=== PATIENT | female | born 1990 | race Caucasian/White ===

== ENCOUNTER 2023-07-30 15:59 | Emergency (ER) | payer OTHER, SELFPAY ==
[2023-07-30 16:07] VITALS: BP 139/80; PULSE 107; RESP 20; TEMP 36.3; O2SAT 98
--- NOTE | 2023-07-30 16:21 | ED.FEMALEGU ---
HPI - Female Genitourinary General Chief complaint: Urogenital-Female Stated complaint: Poss UTI Time Seen by Provider: 07/30/23 16:29 Source: patient and RN notes reviewed Mode of arrival: ambulatory Limitations: no limitations History of Present Illness HPI Narrative: 32-year-old female presents with concern for 1 hour history of very frequent need to urinate, urgency. Reports a very small amount of urination. She reports mild low back pain. She denies fever, aches, chills, sweats. Denies nausea, vomiting, abdominal pain. MD elicited complaint: UTI Related Data Allergies Allergy/AdvReac Type Severity Reaction Status Date / Time No Known Allergies Allergy Verified 10/04/18 07:23 Review of Systems Review of Systems: CONSTITUTIONAL: Denies malaise, chills, sweats, or fever. CARDIOVASCULAR: Denies chest pain, palpitations, or edema. RESPIRATORY: Denies cough or dyspnea. GASTROINTESTINAL: Denies abdominal pain, nausea, vomiting, diarrhea GENITOURINARY: Denies dysuria, suprapubic pressure. Denies flank pain or hematuria. Reports frequency, urgency, small amount of urine SKIN: Denies rash or itching. MUSCULOSKELETAL: Reports mild back pain. Myalgia. All systems reviewed & are unremarkable except as noted in HPI and below PMFSH Comments At time of signature, agree with nursing past medical, surgical, social and family history. There is no relevant family history pertinent to the presenting complaint Exam Narrative: GENERAL: Well-appearing, well-nourished, and in no acute distress. HEAD: Normocephalic. EYES: PERRLA, conjunctivae clear. NECK: Supple. No lymphadenopathy CHEST: Clear to auscultation. No respiratory distress. HEART: Regular rate and rhythm. ABDOMEN: Soft, nontender upon palpation, nondistended, normal active bowel sounds, no palpable or pulsatile masses, no guarding. No CVA tenderness SKIN: Warm, dry, no rash. NEURO: Alert and oriented x3. PSYCH: Normal mood and affect Course Course Emergency Course: Patient is aware of diagnosis, understands and agrees to treatment plan. Anticipatory guidance given. Patient agrees to follow-up as directed and is aware of reasons to seek care at the emergency department. Portions of this record may have been created with voice recognition software Level of Care: Express Care Visit Vital Signs Vital signs: Vital Signs Temperature 97.4 F L 07/30/23 16:07 Pulse Rate 107 H 07/30/23 16:07 Respiratory Rate 20 07/30/23 16:07 Blood Pressure 139/80 07/30/23 16:07 Pulse Oximetry 98 07/30/23 16:07 Oxygen Delivery Room Air 07/30/23 16:07 Temperature 97.4 F L 07/30/23 16:07 Pulse Rate 107 H 07/30/23 16:07 Respiratory Rate 20 07/30/23 16:07 Blood Pressure 139/80 07/30/23 16:07 Pulse Oximetry 98 07/30/23 16:07 Oxygen Delivery Room Air 07/30/23 16:07 Reviewed. MDM - Female Genitourinary MDM Narrative Medical decision making narrative: Exam findings and UA show no acute concerns or changes; patient is non-toxic appearing and is in no distress. Patient is appropriate for outpatient treatment and follow-up. Differential Diagnosis Differential diagnosis: Likely urinary tract infection and cystitis Lab Data Labs: Urine Glucose Negative Reference Range: Negative Urine Bilirubin Negative Reference Range: Negative Urine Ketone Negative Reference Range: Negative Urine Specific [place] 1.010 Reference Range:1.001-1.035 Urine Blood 3+ Reference Range: Negative * * Urine pH 6.5
== END 2023-07-30 16:40 | disposition home or self-care (01) ==
PROVIDERS: Emergency Provider Nurse Practitioner
DX: N39.0 Urinary tract infection, site not specified (principal); B96.20 Unspecified Escherichia coli [E. coli] as the cause of diseases classified elsewhere
CPT/HCPCS: 81003; 87077; 87086; 87186; 99203; G0463

== ENCOUNTER 2025-05-02 18:29 | Emergency (ER) | payer BC, SELFPAY ==
--- NOTE | ~2025-05-02 | XR_ITS ---
EXAMINATION: XR chest 2V 05/02/2025 18:52 INDICATION: Cough and shortness of breath PROCEDURE: 2 view chest COMPARISON: No prior studies for comparison. FINDINGS: The lungs are clear. The cardiomediastinal silhouette is within normal limits. There are no pleural effusions. There is no pneumothorax suspected. IMPRESSION: 1: NO ACUTE CARDIOPULMONARY DISEASE. Reviewed, dictated and finalized at location O.
--- OUTSIDE RECORDS SUMMARY | 2025-05-02 18:31 | XMS_ITS | Clinical Summary ---
Author Organization [facility] Address [address] [place] [address] Care Team Providers Care Drill Sharpener Operator Name Role Phone Shayy Turner PA-C Primary Care Provider + Source Comments [facility],non-owned Affiliates and Associated Physician Practices is amultiple site organization consisting of ambulatory clinics and hospital sitesin [place], [place], [place] and [place]. This disclosure is being madepursuant to the Care Everywhere program and may not contain all information available regarding this patient. Last updated 18.[facility] Allergies No known active allergies Medications * Be aware that medications may not be up to date on this document. Alwaysverify current medications with the patient. Vit-Fe Fumarate-FA ( VITAMIN) 28-0.8 MG tablet Take 1 tablet by mouth once daily Active folic acid (FOLVITE) 1 MG tablet Take 4 mg by mouth once daily Active aspirin (ASPIRIN) 81 MG tablet Take 162 mg by mouth once daily Active calcium-vitamin D (CALTRATE PLUS D) 600-200 MG-UNIT tablet Take 1 tablet by mouth once daily Active progesterone micronized (PROMETRIUM) 100 MG capsule Take 100 mg by mouth 2 times daily Active metFORMIN (GLUCOPHAGE) 500 MG tabletIndicatio ns:Gestational Diabetes,pt started 1 in am and 2 at night and will increase in 3 days to 2 in am and 2 pm Take 500 mg by mouth 3 times daily with meals Reasons: Diabetes During , pt started 1 in am and 2 at night and will increase in 3 days to 2 in am and 2 pm Active Active Problems Problem Noted Date Diagnosed Date Itching 08/19/2018 Overview (09/16/2018): Total bile acids (08/19) <1.5; ALT/AST /; bilirubin 0.3 Assessment & Plan (09/16/2018 7:39 PM AUTO TRANSMISSION SPECIALIST): Labs not consistent with intrahepatic cholestasis of Obesity 08/19/2018 History of delivery, currently 08/14/2018 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 Overview (09/02/2018): Per ACOG review; MTHFR: 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, two copies GDM (gestational diabetes mellitus) 08/11/2018 Overview (09/16/2018): GCT: 177 (07/23/18) GTT: 86, 210 (abnormal), 161 (abnormal), 125 (07/31/18) Assessment & Plan (09/16/2018 7:39 PM AUTO TRANSMISSION SPECIALIST): Elevated fasting blood glucose Plan: Metformin 1000mg BID 4 times daily blood sugars and glucose logs Twice weekly nonstress tests starting at 34 weeks Serial growth every 4 weeks with last assessment at 38 weeks for mode of delivery Delivery initiation between 39-40 weeks Diabetes testing 4-5 weeks after delivery with review at 6 week visit Assessment & Plan (09/02/2018 1:23 PM AUTO TRANSMISSION SPECIALIST): Glyburide stopped and Metformin initiated 08/26/18. Check blood glucose 4x daily, including fasting and one hour after each meal. Send in glucose and food records to diabetes team each week, even if not being seen for a visit. Twice daily kick counts. Close monitoring for development of preeclampsia. Twice weekly NST from 34 weeks until delivery. Serial growth assessments every 3-4 weeks, with final assessment at 37-38 weeks for delivery mode planning. Report any episodes of hypoglycemia. 2 hour GTT to be checked at 4 weeks PP, to be reviewed at 6 weeks PP visit, if normal, annual screening recommended. Assessment & Plan (08/19/2018 1:33 PM AUTO TRANSMISSION SPECIALIST): Glyburide 5mg every evening Continue to check blood glucose 4x daily, including fasting and one hour after each meal. Send in glucose and food records to diabetes team each week, even if not being seen for a visit. Continue Glyburide 5mg at night time. Continue efforts in carb counting, encouraged compliance with nutritional counseling next week. Twice daily kick counts. Close monitoring for development of preeclampsia. Twice weekly NST from 34 weeks until delivery Serial growth assessments every 3-4 weeks, with final assessment at 37-38 weeks for delivery mode planning. 2 hour GTT to be checked at 4 weeks PP, to be reviewed at 6 weeks PP visit, if normal, annual screening recommended. 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, two copies AFP TETRA SCREEN: negative Assessment & Plan (08/14/2018 11:21 AM AUTO TRANSMISSION SPECIALIST): Datinw u/s c/w LMP, CRL of 2.25cm, MIGUEL-->10/29/18 summary A+/Imm/-/- HIV NR (03/04/18) Antibody screen: negative Hemoglobin electrophoresis: Normal TSH: 1.1 H/H/P: 12.7/37.8/330 CT/GC: neg/neg (04/16/18) Irritable bowel syndrome (IBS) Family History Medical History Relation Name Comments Arthritis - Rheumatoid Father Hypertension Father Lung Disease Father Sleep Disorder - Other Father Cancer - Other Maternal Grandmother Hypertension Mother Cancer - Other Other Paternal Uncle Lung Disease Other Paternal Uncle Lung Disease Sister Relation Name Status Comments Father Maternal Grandmother (Age 39) ma lignant tumor of cervix Mother Other Paternal Uncle malignant jocelyne plastic disease Sister cervical cancer Social History Tobacco Use Types Packs/Day Years Used Date Smoking Tobacco: Former Cigarettes 0.3 10 Smokeless Tobacco: Never Comments No Sex and Gender Information Value Date Recorded Sex Assigned at Not on file Legal Sex Female 8:41 AM CDT Gender Identity Not on file Sexual Orientation Not on file Last Filed Vital Signs Vital Sign Reading Time Taken Comments Blood Pressure 143/71 10/20/2018 9:46 AM AUTO TRANSMISSION SPECIALIST Pulse 93 10/20/2018 9:46 AM AUTO TRANSMISSION SPECIALIST Temperature - - Respiratory Rate 16 08/19/2018 10:0 4 AM AUTO TRANSMISSION SPECIALIST Oxygen Saturation - - Inhaled Oxygen Concentration - - Weight 94.3 kg (207 lb 12.8 oz) 019 10:06 AM AUTO TRANSMISSION SPECIALIST Height 170.2 cm (5' 7) 08/19/2018 10:0 4 AM AUTO TRANSMISSION SPECIALIST Body Mass Index 32.55 08/19/2018 10:04 AM AUTO TRANSMISSION SPECIALIST Plan of Treatment Health Maintenance Due Date Last Done Comments HIV SCREENING 2004 HEPATITIS C SCREENING 11/03/2007 DTAP/TDAP/TD VACCINES (1 - Tdap) 2008 HEPATITIS B VACCINE (1 of 3 - 19+ 3-dose series) 2008 HPV VACCINE (1 - 3-dose SCDM series) 2016 DEPRESSION SCREENING 08/25/2024 COVID-19 VACCINE (1 - season) 2025 INFLUENZA VACCINE (#1) 2025 8, 07/14/2017, 07/10/2017, Additional history exists ZOSTER VACCINE (1 of 2) 11/08/2039 HIB VACCINE Aged Out No longer eligi ble based on patient's age to complete this topic MENINGOCOCCAL (Group B) VACCINE SHARED DECISION-MAKING Aged Out No longer eligible based on patient's age to complete this topic MENINGOCOCCAL GROUPS A/C/Y/W VACCINE Aged Out No longer eligible based on patient's age to complete this topic PNEUMOCOCCAL VACCINE Aged Out No long er eligible based on patient's age to complete this topic Insurance [employer] [facility] [place] [address] HEALTH CARE Care Teams Drill Sharpener Operator Relationship Specialty Start Date End Date Shayy Turner JanuaryWADE PCP - General Physician Instructional Interventionist 08/12/18
--- OUTSIDE RECORDS SUMMARY | 2025-05-02 18:31 | XMS_ITS | Clinical Summary ---
Author Organization [facility] Address [address] [place] [phone] Phone Care Team Providers Care Quality Improvement Coordinator Name Role Phone Gael Taylor MD Unavailable Megan Grijalva APRN, ADMINISTRATIVE SUPPORT TECHNICIAN Primary Care P rovider Allergies No known active allergies Medications metroNIDAZOLE (METROGEL) 0.75 % GelIndications: Bacterial vaginitis 1 Applicatorful by Vaginal route nightly. 70 g 04/12/20 25 Active naltrexone-bupr opion hcl er (Contrave) 8-90 MG TABLET SR 12 HRIndications:C lass 1 obesity due to excess calories with serious comorbidity and body mass index (BMI) of 30.0 to 30.9 in adult Start 1 tab by mouth in the am for 1 week, then 1 tab twice daily for 1 week, then 2 tabs in the am and 1 tab in the pm for 1 week, then 2 tabs twice daily 70 Tablet 04/12/20 25 Active phentermine hcl (ADIPEX-P) 37.5 MG TabletIndicatio ns:Class 1 obesity due to excess calories with serious comorbidity and body mass index (BMI) of 30.0 to 30.9 in adult Take 1 Tablet by mouth every morning (before breakfast) for 30 days. 30 Tablet 04/18/20 25 05/18/ 025 Active Cyanocobalamin (B-12 PO) Take by mouth. 025 Discontin ued(Med List Clean Up) Cholecalciferol (Vitamin D3) 1.25 MG (28789 UT) TabletIndicatio ns:Vitamin D deficiency Take 1 Tablet by mouth once a week. 12 Tablet 3 10/01/19 23 025 Discontin ued(Med List Clean Up) polyethylene glycol (GLYCOLAX) 17 GM/SCOOP Powder Take 17 g by mouth daily. 17 g = 1 scoop. Dissolve in 4 -8 oz of water or other liquid. 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, two copies B12 deficiency 11/20/2017 Vitamin D deficiency 10/23/2017 Resolved Problems Problem Noted Date Diagnosed Date Resolved Date Aphthous ulcer 04/06/2019 10/01/2022 Cellulitis of palate 04/06/2019 023 History of gestational diabetes 11/19/2018 10/01/2022 Chronic idiopathic constipation 03/04/2018 04/12/2025 Irritable bowel syndrome with constipation 10/23/2017 10/01/2022 Hypertriglyceridemia 10/23/2017 023 Encounters Date Type Department Care Team Description 04/12/2025 2:00 PM CDT Office Visit [facility] - Primary Care - [place] [address] [place] [address] Megan Grijalva, PASSENGER BARGE MASTER, ADMINISTRATIVE SUPPORT TECHNICIAN Annual physical exam (Adult) (Primary Dx); Bacterial vaginitis; Class 1 obesity due to excess calories with serious comorbidity and body mass index (BMI) of 30.0 to 30.9 in adult; Vitamin D deficiency; Vitamin B12 deficiency; Hypocalcemia Discharge Disposition: Discharged to home or Selfcare 04/11/2025 Travel 03/11/2025 3:17 AM CDT - 03/11/2025 4:11 AM CDT Emergency [facility] [address] [facility] [id number] Genaro Cornejo MD Right knee sprain Discharge Disposition: Discharged to home or Selfcare 03/11/2025 Travel 02/14/2025 Refill [facility] - Primary Care - [place] [address] [place] [address] Megan Grijalva APRN, ADMINISTRATIVE SUPPORT TECHNICIAN Medication Refill from Last 3 Months Immunizations Immunization Administration Dates Next Due Covid-19, Mrna, Lnp-s, Pf, 3 0 Mcg/0.3 Ml Dose ([facility]) 11/09/2020,10/19/2020 DTAP VACCINE 09/02/2014 Hepatitis B Vaccine, Pediatric/adolescent 04/10/2000,12/28/1999,08/08/1999 Influenza Vaccine 07/14/2017,07/14/2016 Influenza Vaccine greater than 3 yrs 07/24/2019, 07/24/2018,06/25/2017 Influenza Vaccine, Quadrivalent, PF 05/24/2021,1 ,07/01/2019 Influenza Vaccine,unspecifie d Formulation 07/14/2016 Influenza, Injectable, Quadrivalent 06/03/2018,1 09/09/2016,06/01/2014 Influenza, Seasonal, Injecta ble, Undefined 07/24/2019,07/24/2018,06/25/2017,2014 MMR Vaccine 04/10/2000,06/10/1995 TD VACCINE 11/05/2002 TDAP Vaccine 07/23/2018,03/13/2009 Family History Medical History Relation Name Comments No Known Problems Brother Chronic Obstructive Pulmonary Disease Father Emphysema Father Emphysema Maternal Grandmother Emphysema Mother Emphysema Paternal Grandmother Cancer Sister Relation Name Status Comments Brother Alive Father Alive Maternal Grandfather Maternal Grandmother Mother Alive Paternal Grandfather Paternal Grandmother Sister Alive Social History Tobacco Use Types Packs/Day Years Used Date Smoking Tobacco: Every Day Cigarettes 0.7 18.7 Started: 2006 Smokeless Tobacco: Never Tobacco Cessation:Ready to Q uit: No; Counseling Given: Yes Alcohol Use Standard Drinks/Week Comments Yes 0 (1 standard drink = 0.6 oz pur e alcohol) Occasionally Social Connection and Isolation Panel Answer Date Recorded In a typical week, how many times do you talk on the phone with family, friends, or neighbors? More than three times a week 04/12/2024 How often do you get togethe r with friends or relatives? More than three times a week 04/12/2024 How often do you attend chur ch or confucianism services? More than 4 times per year 04/12/2024 Do you belong to any clubs o r organizations such as quaker groups, [employer], [employer] or athletic groups, or school groups? Yes 04/12/2024 How often do you attend meet ings of the clubs or organizations you belong to? More than 4 times per year 04/12/2024 Are you , , di vorced, , never , or living with a partner? 04/12/2024 PHQ-2 Answer Date Recorded Total Score - Questions 1-9 2 03/25 Housing Stability Vital Sign Answer José e Recorded In the last 12 months, was t here a time when you were not able to pay the mortgage or rent on time? No 04/12/2024 In the past 12 months, how m any times have you moved where you were living? 0 04/12/2024 At any time in the past 12 m [facility], were you homeless or living in a custodial (including now)? No 04/12/2024 Social Connection and Isolation Panel Answer Date Recorded In a typical week, how many times do you talk on the phone with family, friends, or neighbors? More than three times a week 04/11/2025 How often do you get togethe r with friends or relatives? More than three times a week 04/11/2025 How often do you attend chur ch or confucianism services? Patient declined 04/11/2025 Do you belong to any clubs o r organizations such as quaker groups, unions, fraternal or athletic groups, or school groups? No 04/11/2025 How often do you attend meet ings of the clubs or organizations you belong to? Never 04/11/2025 Are you , , di vorced, , never , or living with a partner? 04/11/2025 AUDIT-C Answer Date Recorded Q1: How often do you have a drink containing alc ohol? Monthly or less 04/11/2025 Q2: How many drinks containi ng alcohol do you have on a typical day when you are drinking? 1 or 2 04/11/2025 Q3: How often do you have si x or more drinks on one occasion? Never 04/11/2025 Overall Financial Resource Strain (CARDIA) Answe r Date Recorded How hard is it for you to pa y for the very basics like food, housing, medical care, and heating? Not hard at all 04/11/2025 [facility] - Occupational Stress Questionnaire Answer Date Recorded Do you feel stress - tense, restless, nervous, or anxious, or unable to sleep at night because your mind is troubled all the time - these days? Not at all 04/11/2025 Exercise Vital Sign Answer Date Recorde d On average, how many days pe r week do you engage in moderate to strenuous exercise (like a brisk walk)? 3 days 04/11/2025 On average, how many minutes do you engage in exercise at this level? 60 min 04/11/2025 Hunger Vital Sign Answer Date Recorded Within the past 12 months, y ou worried that your food would run out before you got the money to buy more. Never true 04/11/20 25 Within the past 12 months, t he food you bought just didn't last and you didn't have money to get more. Never true 04/11/2025 PRAPARE - Transportation Answer Date Re corded In the past 12 months, has l ack of transportation kept you from medical appointments or from getting medications? No 03/25 In the past 12 months, has l ack of transportation kept you from meetings, work, or from getting things needed for daily living? No 04/11/2025 Housing Stability Vital Sign Answer José e Recorded In the last 12 months, was t here a time when you were not able to pay the mortgage or rent on time? No 04/11/2025 In the past 12 months, how m any times have you moved where you were living? 0 04/11/2025 At any time in the past 12 m [facility], were you homeless or living in a custodial (including now)? No 04/11/2025 [facility] Utilities Answer Date Recorded In the past 12 months has th e electric, gas, oil, or water company threatened to shut off services in your home? No 04/11/2025 Sexually Active Control Partners Comments Yes None Male Comments No Sex and Gender Information Value Date Recorded Sex Assigned at Not on file Legal Sex Female 12:12 PM CHICKEN [employer] Gender Identity Not on file Sexual Orientation Not on file Last Filed Vital Signs Vital Sign Reading Time Taken Comments Blood Pressure 138/86 04/12/2025 1:36 PM CDT Pulse 76 04/12/2025 1:36 PM CDT Temperature 36.4 C (97.6 F) 04/12/2025 1:36 PM CDT Respiratory Rate 18 04/12/2025 1:36 PM CDT Oxygen Saturation 99% 04/12/2025 1:36 PM CDT Inhaled Oxygen Concentration - - Weight 88.9 kg (196 lb) 04/12/2025 1:36 PM CDT Height 170.2 cm (5' 7) 04/12/2025 1:36 PM CDT Body Mass Index 30.7 04/12/2025 1:36 PM CDT Plan of Treatment Health Maintenance Due Date Last Done Comments Hepatitis C Virus (HCV) Screening 1989 Pneumococcal Immunization Combined (1 of 2 - PCV) 2008 Human Papillomavirus (HPV) Immunization (1 - 3-dose SCDM series) 2016 Influenza Immunization (#1) 2025 09/3 , 06/12/2020, 07/24/2019, Additional history exists SARS-COV-2 Immunization (2024- season) 2025 11/09/2020, 10/19/2020 Pap Smear 04/12/2027 04/12/2024, 03/08/2021, 07/14/2017 Cervical Cancer Screening (CCS) 04/12/2029 HPV/Cotest 04/12/2029 04/12/2024 Respiratory Syncytial Virus (RSV) Immunization (Adult) (1 - 1-dose 75+ series) 2064 Hepatitis B Immunization Completed 000, 12/28/1999, 08/08/1999 DTaP/Tdap/Td Immunization Discontinued 2017, 09/02/2014, 03/13/2009, Additional history exists Meningococcal Immunization (ACWY) Aged Out No longer eligible based on patient's age to complete this topic Rotavirus Immunization Aged Out No lo nger eligible based on patient's age to complete this topic Procedures Procedure Name Priority Date/Time Associated Diagnosis Comments XR KNEE 3 VIEWS RIGHT STAT 03/11/2025 3:46 AM CDT HUMAN PAPILLOMA VIRUS (HPV) Routine 04/12/2024 4:34 PM CDT Well woman exam with routine gynecological exam Class 1 obesity due to excess calories with serious comorbidity and body mass index (BMI) of 30.0 to 30.9 in adult PATHOLOGY CYTOLOGY DESIGN DRAFTSMAN Routine 04/12/2024 4:34 PM CDT Well woman exam with routine gynecological exam from Last 3 Months or Most Recently Relevant to Health Maintenance Results * XR KNEE 3 VIEWS RIGHT (03/11/2025 3:46 AM CDT) Anatomical Region Laterality Modality LOWER EXTREMITY, knee Right Digital Ra diography 03/11/2025 3:58 AM CDT Impressions 03/11/2025 4:01 AM CDT IMPRESSION: No acute osseous abnormality. Narrative 03/11/2025 4:01 AM CDT EXAM DESCRIPTION: XR KNEE 3 VIEWS RIGHT REASON FOR STUDY: direct blow injury yesterday, painful, limited ROM. TECHNIQUE: 3 radiographic view(s) of the right knee . COMPARISON: None FINDINGS: BONES/JOINTS: There is no acute fracture, malalignment or osseous abnormality. Small knee joint effusion. SOFT TISSUES: Within normal limits. THIS IS AN ELECTRONICALLY VERIFIED FINAL REPORT 03/11/2025 3:58 AM - Electronically signed by Ruth Miles M.D. FT: FT Report ID: [id number] Reading Location: [id number] Procedure Note Ruth Díaz MD - 03/11/2025 EXAM DESCRIPTION: XR KNEE 3 VIEWS RIGHT REASON FOR STUDY: direct blow injury yesterday, painful, limited ROM. TECHNIQUE: 3 radiographic view(s) of the right knee . COMPARISON: None FINDINGS: BONES/JOINTS: There is no acute fracture, malalignment or osseous abnormality. Small knee joint effusion. SOFT TISSUES: Within normal limits. THIS IS AN ELECTRONICALLY VERIFIED FINAL REPORT 03/11/2025 3:58 AM - Electronically signed by Ruth Miles M.D. FT: FT Report ID: [id number] Reading Location: [id number] IMPRESSION: No acute osseous abnormality. Genaro Cornejo MD IMG DIAGNOSTIC ORDERABLES Final Result * PATHOLOGY CYTOLOGY DESIGN DRAFTSMAN (04/12/2024 4:34 PM CDT) SPECIMEN ADEQUACY Satisfactory for evaluation. Endocervical/transf ormation zone component is present. 04/20/2024 2:43 PM CDT [facility] DESCRIPTIVE DIAGNOSIS NEGATIVE FOR INTRAEPITHELIAL LESIONS OR MALIGNANCY. 04/20/2024 2:43 PM CDT [facility] at 1443 CDT OTHER FINDINGS Predominance of coccobacilli present consistent with shift in vaginal bindu. 04/20/2024 2:43 PM CDT [facility] Automated Examination Analysis of this sample has been assisted by an automated imaging and review system ([employer] Imaging System, [employer], [place], [place]). This case is further evaluated and finalized by a design printing machine setter and/or pathologist. 04/20/2024 2:43 PM CDT [facility] Disclaimer The PAP smear is a screening test designed to detect cancerous or precancerous cells of the uterine cervix. It is one of the best means available for detection of cervical cancer but still carries an inherent false-negative rate. The consequences of a false-negative PAP result can be minimized by adhering to current screening guidelines. The following are general guidelines recommended by the ACS, ASCP, ASCCP, and ACOG: PAP testing is recommended every three years for women 21-29, Co-Testing, a PAP test in conjunction with an HPV (Human Papillomavirus) test for women ages 30-65, and no PAP or HPV testing for women under the age of 21 or older than 65 unless clinically indicated. 04/20/2024 2:43 PM CDT [facility] Case Report Gynecologic Cytology Report Case: [id number] Authorizing Provider: Megan Grijalva, Collected: 04/12/2024 04:34 PM LISA LANG Ordering Location: [facility] Received: 04/12/2024 04:34 PM [facility] Screen: Bianka Jones Specimen: TP Screen, Cervix/Endocervix/V aginal 04/20/2024 2:43 PM CDT [facility] Other (Cervix/Endocerv ix/Vaginal) Non-Phlebotomy Collection / Unknown 04/12/2024 4:34 PM CDT 04/12/2024 4:34 PM CDT us Megan Grijalva APRN, CNP PATHOLOGY/CYTOL OGY ORDERABLES Final Result [facility] [address] [place] [address], * HUMAN PAPILLOMA VIRUS (HPV) (04/12/2024 4:34 PM CDT) HPV TYPE 16 NEGATIVE NEGATIVE 04/15/2024 7:27 AM CDT [facility] Comment: A negative high-risk HPV result does not exclude the possibility of future cytologic HSIL or underlying CIN2-3 or cancer. The presence of PCR inhibitors may cause false negative or invalid results. If concentrations of whole blood in the sample exceed 10% (dark red or brown coloration) in PreservCyt solution, there is a likelihood of obtaining a false-negative result. HPV TYPE 18 NEGATIVE NEGATIVE 04/15/2024 7:27 AM CDT [facility] Comment: A negative high-risk HPV result does not exclude the possibility of future cytologic HSIL or underlying CIN2-3 or cancer. The presence of PCR inhibitors may cause false negative or invalid results. If concentrations of whole blood in the sample exceed 10% (dark red or brown coloration) in PreservCyt solution, there is a likelihood of obtaining a false-negative result. HPV OTHER HIGH RISK TYPES, PCR NEGATIVE NEGATIVE 04/15/2024 7:27 AM CDT [facility] Comment: The following Other High Risk types were not detected: 31, 33, 35, 39, 45, 51, 52, 56, 58, 59, 66, and 68. A negative high-risk HPV result does not exclude the possibility of future cytologic HSIL or underlying CIN2-3 or cancer. The presence of PCR inhibitors may cause false negative or invalid results. If concentrations of whole blood in the sample exceed 10% (dark red or brown coloration) in PreservCyt solution, there is a likelihood of obtaining a false-negative result. HPV ORDER BE USED FOR SCREENING OR DIAGNOSTIC SCREENING 04/15/2024 7:27 AM CDT [facility] Other Non-Phlebotomy Collection / Unknown 04/12/2024 4:34 PM CDT 04/13/2024 8:14 AM CDT Narrative [facility] - 04/15/2024 7:27 AM CDT This test was performed using ALINE 5800 Real Time PCR. Megan Grijalva APRN, CNP LAB SEND OUTS Final Result [facility] [address] [place] [address], [facility] [address] [place] [address] from Last 3 Months or Most Recently Relevant to Health Maintenance Insurance [facility] Care Teams Quality Improvement Coordinator Relationship Specialty Start Date End Date Megan Grijalva APRN, ADMINISTRATIVE SUPPORT TECHNICIAN [address] [place] [address] PCP - General Advanced Practice Nurse 02/03/20 Gael Taylor MD Consulting Physician Obstetrics & Gynecology 10/23/17
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
--- NOTE | 2025-05-02 18:32 | ED_ITS ---
HPI - URI/Sore Throat General Chief Complaint: Upper Respiratory Infection Stated Complaint: congestion Time Seen by Provider: 05/02/25 18:32 Source: patient Mode of arrival: ambulatory Limitations: no limitations History of Present Illness HPI Narrative: Sanaz is a 34-year-old female patient presenting to the clinic today with complaints of cough, nasal congestion and chest congestion x1 week. She reports she feels as though her chest feels congested and heavy. Denies any chest pain. Cough is productive with some green phlegm. Patient's concern for pneumonia. MD elicited complaint: sore throat and nasal congestion Related Data Allergies Allergy/AdvReac Type Severity Reaction Status Date / Time No Known Allergies Allergy Verified 05/02/25 18:46 Review of Systems Review of Systems: Pertinent positives per HPI. Patient denies any fever, chills, rash, headache, visual changes, dizziness, cough, shortness of breath, chest pain, palpitations, nausea, vomiting, diarrhea, constipation, abdominal pain, or any urinary issues. PMFSH Comments At the time of my signature, I reviewed and agree with the nursing past medical, surgical, social, and family history. There is no relevant family history pertinent to the patient complaint. Exam Narrative: General: Well-developed, obese, in no apparent distress Head: Normocephalic, atraumatic Eyes: Pupils equally round and reactive to light bilaterally, EOM intact, sclera and conjunctive clear, no discharge, lids normal Ears: TMs intact and clear, ear canals clear, no drainage, grossly hearing normal. Nose: Nares patent, clear nasal discharge, mild inflammation, no sinus tenderness. Mouth: Oral pharynx without lesions or masses, good dentition, MMM. Neck: Supple, trachea midline, no enlargement of anterior or posterior cervical nodes, no thyroid masses or goiter palpable. Cardio: Regular rate and rhythm, s1 and s2 normal, no murmur appreciated. Resp: Diminished in the bases with some expiratory wheezing, no rhonchi, rales, or rubs Course Course Emergency Course: Portions of this record may have been created with voice recognition software. Level of Care: Express Care Visit Vital Signs Vital signs: Vital Signs Temperature 36.6 C 05/02/25 18:36 Pulse Rate 82 05/02/25 18:36 Respiratory Rate 20 05/02/25 18:36 Blood Pressure 134/85 05/02/25 18:36 Pulse Oximetry 96 05/02/25 18:36 Oxygen Delivery Room Air 05/02/25 18:36 Temperature 36.6 C 05/02/25 18:36 Pulse Rate 82 05/02/25 18:36 Respiratory Rate 20 05/02/25 18:36 Blood Pressure 134/85 05/02/25 18:36 Pulse Oximetry 96 05/02/25 18:36 Oxygen Delivery Room Air 05/02/25 18:36 Vital signs reviewed MDM - URI/Sore Throat MDM Narrative Medical decision making narrative: At the time of visit patient is resting comfortably on the exam table. Patient appears to be nontoxic. Complaints of cough, nasal congestion and chest congestion x1 week. She reports she feels as though her chest feels congested and heavy. Denies any chest pain. Cough is productive with some green phlegm. Patient's concern for pneumonia. On exam patient has diminished breath sounds in the bases with some faint wheezing. Clear nasal discharge/mild congestion. Chest x-ray ordered. Diagnostics: Chest x-rays negative for any acute cardiopulmonary process. Plan: I suspect patient has bronchitis. Prescription for albuterol inhaler and prednisone was sent to the pharmacy. Supportive measures were discussed with the patient and they voiced understanding discharge instructions and agrees to treatment plan. Return precautions reviewed Differential Diagnosis Differential diagnosis: Likely upper respiratory infection, otitis media, sinusitis, viral infection, bronchitis, influenza, pharyngitis and other (COVID) Discharge Plan Discharge Clinical Impression: Bronchitis Patient Disposition: Home Condition: Stable Instructions: Antibiotic Form, Acute Bronchitis (ED) Additional Instructions: Chest x-rays negative for any acute cardiopulmonary process. Take prescription medications only as prescribed-prednisone and albuterol inhaler Increase fluids and stay well hydrated May take Tylenol or motrin as directed on bottle for pain/fever May use Flonase 1 spray in each nare daily May take OTC antihistamines such as Zyrtec or Claritin daily as directed on bottle May apply Vicks vapor rub to chest to open sinuses Sinus rinses for congestion Cepacol spray, cough drops, throat lozenges, warm tea with honey/lemon, gargle salt water to soothe throat BRAT diet for diarrhea Clear liquids x 24 hours then advance as tolerated for nausea/vomiting Go to the ED if you develop a worsening in your condition- high fever not controlled by Tylenol or Motrin, dehydration, weakness, lethargy, shortness of breath, or chest pain. Follow up with your PCP in 3-5 days if symptoms persist. Patient Language: [place] Prescriptions: New prednisone 20 mg tablet 40 mg PO DAILY 5 Days Qty: 10 0RF albuterol sulfate 90 mcg/actuation HFA aerosol inhaler 2 puff inhalation Q4-6H PRN (Reason: shortness of breath or wheezing) 30 Days Qty: 8.5 0RF Follow-up/Referrals: UNKNOWN,DOCTOR [Non-Staff] Time of Disposition: 19:01 Quality NIHSS Nursing Documentation ED NIHSS nursing documentation: reviewed/agree
[2025-05-02 18:36] VITALS: BP 134/85; PULSE 82; RESP 20; TEMP 36.6; O2SAT 96
== END 2025-05-02 19:05 | disposition home or self-care (01) ==
PROVIDERS: Emergency Provider Nurse Practitioner Family
DX: J40 Bronchitis, not specified as acute or chronic (principal)
CPT/HCPCS: 71046; 99213; G0463